=== PATIENT | female | born 1995 | race Caucasian/White ===

== ENCOUNTER 2022-06-12 16:22 | Emergency (ER) | payer OTHER ==
[~2022-06-12] VITALS: Ht 157.5 cm; Wt 81.6 kg
[2022-06-12 16:26] VITALS: BP 141/94
--- NOTE | 2022-06-12 16:32 | NUR ---
27/F WALKED IN C/O DIZZINESS AFTER TAKING HTN MED. DENIES NVD. DENIES FALL OR SYNCOPE. PMH: HTN
--- NOTE | 2022-06-12 16:42 | NUR ---
PT REPORTS STARTED TAKING LABETALOL 100MG YESTERDAY FOR HTN
[2022-06-12 17:31] VITALS: BP 151/106
--- NOTE | 2022-06-12 17:50 | NUR ---
Patient discharged with v/s stable. Written and verbal after care instructions given and explained. Patient verbalized understanding. Ambulatory with steady gait. All questions addressed prior to discharge. Advised to follow up with PMD.
== END 2022-06-12 17:50 | disposition home or self-care (01) ==
LOC: MED 16:22
DX: R42 Dizziness and giddiness (principal); I10 Essential (primary) hypertension; Z79.899 Other long term (current) drug therapy
CPT/HCPCS: 99282